=== PATIENT | female | born 1940 | race Caucasian/White ===

== ENCOUNTER 2025-07-14 11:01 | Emergency (ER) | payer MEDICARE, OTHER ==
[~2025-07-14] VITALS: Ht 165.1 cm; Wt 71.9 kg
[2025-07-14 11:10] VITALS: TEMP 96.2
[2025-07-14] MEDS ORDERED: DOXY-347 PO (13:48)
[2025-07-14] MEDS ORDERED: METR-159 PO (13:48)
--- NOTE | 2025-07-14 13:51 | Physician Documentation ---
History of Present Illness ~ Chief Complaint: Bite-animal Stated Complaint: ANIMAL BITE Time Seen by MD: 13:41 OK to notify your PCP?: Yes Source: patient Mode of Arrival: POV Exam Limitations: no limitations HPI 84-year-old female with chief complaint cat bite to her right hand cat was her own cat and is vaccinated. States that the pain around the bite started to increase and she started experience more redness which is why she wanted to come in today. The cat bite occurred yesterday. She denies any decreased range of motion of her hand or fingers. No fever, pain in her axillary area or up her arm. No pre arrival treatment. Tetanus within 5 years?: Yes Medication Reconciliation Allergies: Coded Allergies: Sulfa (Sulfonamide Antibiotics) (Verified Allergy, Unknown, 07/14/25) amoxicillin (Verified Allergy, Unknown, 07/14/25) Scheduled Doxycycline Monohydrate (Doxycycline Monohydrate), 1 CAP PO Q12H Metronidazole* (Flagyl*), 1 TAB PO TID Past Medical History Past Medical History: No Pertinent History Past Surgical History: noncontributory Alcohol Use: None Drug Use: none Lives with: Family Lives In: Home Review of Systems All Other Systems at this time: Reviewed and Negative Physical Exam Vital Signs: Temperature: 96.2, Source: Temporal, Heart Rate: 72, Respiratory Rate: 18, BP: 163/60, Pulse Oximetry: 99, Weight: 71.900 Oxygen Flow Rate: 0 Physical Exam General Appearance: Alert, WD/WN. NAD. HEENT: NCAT, PERRL, EOMI. Neck: Supple, trachea midline. Cardiovascular: RRR. No m/r/g. Lungs: CTAB. Breathing unlabored Skin: Warm/dry, normal color. Small puncture wound on dorsal aspect of right hand with surrounding ecchymosis and mild erythema, no proximal erythematous streak up arm no axillary lymphadenopathy or tenderness. Active range motion of right hand extremity normal. Neurological: Alert and oriented x4, normal gait. Psychiatric: Affect congruent with mood. Progress Results/Orders Results/Orders Vital Signs 07/14/25 07/14/25 11:10 13:55 Temp 96.2 Pulse 72 74 Resp 18 16 B/P (MAP) 163/60 134/82 Pulse Ox 99 99 O2 Flow Rate 0 Medical Decision Making Differential Dx:Considerations: Include: Abrasion, Allergic reaction, Anaphylaxis, Cellulitis, Contusion, Fracture, Hematoma, Insect envenomation, Laceration, Neurovascular injury, Punture wound, Retained foreign body, Urticaria Departure Time of Disposition: 13:51 Disposition: 01 HOME / SELF CARE / HOMELESS Impression: Primary Impression: Cat bite Qualified Codes: W55.01XA - Bitten by cat, initial encounter Additional Impression: Cellulitis Qualified Codes: L03.113 - Cellulitis of right upper limb Condition: Stable Discharge Instructions: Animal Bite, Adult Additional Instructions: TAKE ANTIBIOTICS PRESCRIBED, TAKE THE DOXYCYCLINE WITH FOOD OTHERWISE THE DOXYCYCLINE CAN CAUSE VOMITING IF REDNESS SPREADING UP ARM, FEVER, PAIN IN AXILLA RETURN TO ER Referrals: NO PRIMARY CARE PROVIDER (PCP) Prescriptions Doxycycline Monohydrate (Doxycycline Monohydrate) 100 Mg Capsule 1 CAP PO Q12H for 10 Days, #20 CAP Prov: MYRON TAYLOR 07/14/25 Metronidazole* (Flagyl*) 500 Mg Tablet 1 TAB PO TID for 10 Days, #30 TAB Prov: MYRON TAYLOR 07/14/25 Education Educated: Patient Educated regarding: diagnosis, treatment, need for follow up Signature Scribe Signature: x Attestation: x MYRON TAYLOR Jul 14, 2025 13:51
[2025-07-14 13:55] VITALS: BP 134/82; PULSE 74; RESP 16; O2SAT 99
== END 2025-07-14 13:58 | disposition home or self-care (01) ==
LOC: ER 11:02
DX: S61.431A Puncture wound without foreign body of right hand, initial encounter (principal); L03.113 Cellulitis of right upper limb; Z88.2 Allergy status to sulfonamides; Z88.1 Allergy status to other antibiotic agents; W55.01XA Bitten by cat, initial encounter; Y93.89 Activity, other specified; Y92.89 Other specified places as the place of occurrence of the external cause; Y99.8 Other external cause status
CPT/HCPCS: 99283